=== PATIENT | female | born 1940 | race Caucasian/White ===

== ENCOUNTER 2017-10-17 11:58 | Inpatient (IN) | payer BC, OTHER ==
[2017-09-29 13:54] VITALS: Ht 162.6 cm; Wt 92.1 kg
--- NOTE | 2017-09-29 14:32 | PAT Medication Instructions ---
Service Date Sep 29, 2017. Current Home Medication List Acetaminophen (Tylenol), 2 TAB PO QD PRN for Pain Amlodipine Besylate-Olmesartan (Landon), 1 TAB PO QAM Aspirin (Aspirin Ec), 81 MG PO QAM Bumetanide (Bumex), 1 TAB PO QAM Metoprolol Succinate (Metoprolol Succinate ER), 1 TAB PO QPM Multivitamin (Multivitamin), 1 TAB PO QAM Medication Instructions For Your Scheduled Surgery - Hold the following medications the morning of surgery: Multivitamin (Multivitamin), 1 TAB PO QAM Bumetanide (Bumex), 1 TAB PO QAM Amlodipine Besylate-Olmesartan (Landon), 1 TAB PO QAM - Take the following medications the morning of surgery with a sip of water: Aspirin (Aspirin Ec), 81 MG PO QAM Acetaminophen (Tylenol), 2 TAB PO QD PRN for Pain (if needed, can be taken up to four hours before surgery) - Take the following medications as scheduled the night before surgery: Metoprolol Succinate (Metoprolol Succinate ER), 1 TAB PO QPM If you have any questions please call us at [phone] or [phone] or [phone]
--- NOTE | 2017-09-29 15:13 | DIAGNOSTIC IMAGING REPORT ---
TWO VIEW CHEST CLINICAL HISTORY: Preoperative examination. FINDINGS: PA and lateral chest radiographs are obtained. No prior studies are available for comparison at the time of dictation. The heart is mildly enlarged and there is atherosclerotic calcification of the thoracic aorta. The pulmonary vasculature is noncongested. There is elevation of the right hemidiaphragm and bibasilar atelectasis. No airspace consolidation is seen typical for pneumonia and no pleural effusion is identified. There is no pneumothorax. The skeletal structures are osteopenic. Degenerative change and scoliosis are noted in the thoracic spine. IMPRESSION: Mild cardiomegaly with no active disease in the chest. Electronically signed by: Ashu Ibarra M.D. 09/29/2017 3:12 PM Dictated Date/Time: 09/29/2017 3:11 PM
[2017-09-29 16:13] LABS: HEMATOCRIT 41.7 % (37-47); HEMOGLOBIN 13.6 g/dL (12.0-16.0); MEAN CORPUSCULAR HGB CONC 32.6 g/dl (32-36); MEAN PLATELET VOLUME 11.4 fL (7.4-10.4); PLATELET COUNT 178 K/uL (130-400); RED CELL DISTRIBUTION WIDTH SD 48.1 fL (36.4-46.3); WHITE BLOOD COUNT 12.47 K/uL (4.8-10.8)
[2017-09-29 16:26] LABS: PTT PATIENT 24.8 SECONDS (21.0-31.0)
[2017-09-29 16:32] LABS: CREATININE 1.42 mg/dl (0.60-1.20)
[2017-09-29 16:33] LABS: CALCIUM 9.3 mg/dl (8.5-10.1); POTASSIUM 4.2 mmol/L (3.5-5.1)
[2017-09-29 17:56] LABS: BASO % 0.2 %; BASO ABS # 0.03 K/uL (0-0.2); EOS % 0.3 %; EOS ABS # 0.04 K/uL (0-0.5); IG# 0.01 K/uL (0.00-0.02); LYMPH % 62.6 %; LYMPH ABS # 7.81 K/uL (1.2-3.4); MONO % 6.5 %; MONO ABS # 0.81 K/uL (0.11-0.59); NEUT % 30.3 %; NEUT ABS # 3.77 K/uL (1.4-6.5)
[~2017-10-17] VITALS: Ht 162.6 cm; Wt 92.1 kg
[2017-10-17] VITALS (9 sets, daily range): BP systolic 152–168; BP diastolic 74–87; PULSE 64–88; TEMP 36.6–36.9; O2SAT 92–97
[~2017-10-17 11:58] MED LIST: ACET650S10 PO; AMLO-3 PO; ASPI81TA28 PO; ATROPINE SULFATE 0.1 MG/ML 5ML SYR IV PRN; BUME1TAB42 PO; CEFAZOLIN 2000MG IV PUSH 10 ML IV SCH; EpHEDrine SULFATE INJ 50 MG/ML AMP IV PRN; FENTANYL CITRATE INJ 50 MCG/1 ML 2 ML VIAL IV PRN; LACTATED RINGER'S 1000ML 1,000 ML IV SCH; MULT-506 PO; ONDANSETRON INJ 2 MG/ML 2 ML VIAL IV PRN; TPRSR/25 PO
[2017-10-17] MEDS ORDERED: LIDOCAINE HCL 2% 2 ML VIAL (20MG/ML) ONE (13:09)
[2017-10-17] MEDS ORDERED: ROCURONIUM BROMIDE 10 MG/ML 5 ML VIAL IV ONE ×2 (13:09→14:43)
[2017-10-17] MEDS ORDERED: PROPOFOL IV EMULSION 10 MG/ML 20 ML VIAL IV ONE (13:09)
[2017-10-17] MEDS ORDERED: ONDANSETRON INJ 2 MG/ML 2 ML VIAL ONE ×2 (13:09→15:22)
[2017-10-17] MEDS ORDERED: BACITRACIN 50000 UNIT VIAL ONE (13:09)
[2017-10-17] MEDS ORDERED: DEXAMETHASONE SOD INJ 4 MG/ML VIAL ONE ×2 (13:09→14:09)
[2017-10-17] MEDS ORDERED: BUPIVACAINE/EPINEPHRINE 0.5% MPF 1:200,000 30 ML VIAL ONE (13:09)
[2017-10-17] MEDS ORDERED: FENTANYL CITRATE INJ 50 MCG/1 ML 2 ML VIAL ONE (13:10)
--- NOTE | 2017-10-17 13:38 | History & Physical Bridge Note ---
H&P Re-Evaluation Bridge Note: I have examined the patient, reviewed the History & Physical and in the interval since the performance of the History & Physical I have noted the following changes of clinical significance: No changes noted
--- NOTE | 2017-10-17 13:51 | History and Physical ---
History & Physical Date Oct 17, 2017. Chief Complaint Back and leg pain History of Present Illness The patient is a 77 year old female with complaints of back and leg pain Additional History Hepatic Disease: No Endocrine Disorder: No Kidney Disease: No Hypertension: Yes Heart Disease: No Bleeding Tendencies: No Infectious Diseases: No Allergies Coded Allergies: Morphine (Verified Allergy, Mild, ITCHING, 10/17/17) Tetanus Toxoid (Verified Allergy, Unknown, UNKNOWN REACTION, 10/17/17) PATIENT REPORTS 1960 SHE WENT TO ED FOR CUT AND "WAS TESTED" AND WAS TOLD SHE WAS ALLERGIC TO IT Home Medications Scheduled Amlodipine Besylate-Olmesartan (Landon), 1 TAB PO QAM Aspirin (Aspirin Ec), 81 MG PO QAM Bumetanide (Bumex), 1 TAB PO QAM Metoprolol Succinate (Metoprolol Succinate ER), 1 TAB PO QPM Multivitamin (Multivitamin), 1 TAB PO QAM Scheduled PRN Acetaminophen (Tylenol), 2 TAB PO QD PRN for Pain Diagnosis Lumbar spinal stenosis Plan of Treatment L5-S1 decompression and fusion
[2017-10-17] MEDS ORDERED: HYDROmorphone INJ 2 MG/ML SYR/VIAL ONE (14:09)
[2017-10-17] MEDS ORDERED: EpHEDrine SULFATE 50MG/5ML SYR ONE (14:43)
[2017-10-17] MEDS ORDERED: GLYCOPYRROLATE INJ 0.2 MG/ML VIAL ONE (15:22)
[2017-10-17] MEDS ORDERED: NEOSTIGMINE METHYLSULFATE 5 MG/5 ML SYR ONE (15:22)
[2017-10-17] MEDS ORDERED: ACETAMINOPHEN IV 100 ML IV PRN (15:30)
[2017-10-17] MEDS ORDERED: hydrOXYzine HCL 25 MG TAB PO PRN (15:30)
[2017-10-17] MEDS ORDERED: ALUMINUM/MAGNESIUM SUSP 30 ML UDC PO PRN (15:30)
[2017-10-17] MEDS ORDERED: DO NOT ADMINISTER FLU VACCINE PRN (15:30)
[2017-10-17] MEDS ORDERED: LORAZEPAM INJ 0.5 MG in SYRINGE 0 ML IV PRN (15:30)
[2017-10-17] MEDS ORDERED: DO NOT ADMINISTER PNEUMOCOCCAL VACCINE PRN (15:30)
[2017-10-17] MEDS ORDERED: PROMETHAZINE HCL INJ 12.5 MG in SODIUM CHLORIDE 0.9% 50ML 50 ML IV PRN (15:30)
[2017-10-17] MEDS ORDERED: SODIUM CHLORIDE 0.9% 1000ML 1,000 ML IV SCH (15:30)
[2017-10-17] MEDS ORDERED: LORAZEPAM 0.5 MG TAB PO PRN (15:30)
[2017-10-17] MEDS ORDERED: ONDANSETRON INJ 2 MG/ML 2 ML VIAL IV PRN (15:30)
[2017-10-17] MEDS ORDERED: METOCLOPRAMIDE HCL INJ 5 MG/ML 2 ML VIAL IV PRN (15:30)
[2017-10-17] MEDS ORDERED: BISACODYL 10 MG SUPP PR PRN (15:30)
[2017-10-17] MEDS ORDERED: MAGNESIUM HYDROXIDE SUSP 30 ML UDC PO PRN (15:30)
[2017-10-17] MEDS ORDERED: NALOXONE HCL 0.4 MG/1 ML VIAL/CARP IV PRN ×2 (15:30)
[2017-10-17] MEDS ORDERED: FAMOTIDINE 20 MG TAB PO PRN (15:30)
[2017-10-17] MEDS ORDERED: SOD PHOSPHATE/SOD BIPHOSPHATE ENEMA 132 ML BTL PR PRN (15:30)
--- NOTE | 2017-10-17 15:30 | [facility] Operative Report ---
Operative Report Operative Date Oct 17, 2017. Pre-Operative Diagnosis Lumbar Spinal Stenosis Post-Operative Diagnosis Lumbar Spinal Stenosis Procedure(s) Performed #1 lumbar decompression medial facetectomy foraminotomy L4 5 L5-S1. #2 posterior spinal fusion L5-S1. #3 placement of posterior instrumentation L5-S1. #4 interbody fusion L5-S1. #5 placement of peek cage 11 x 22 mm L5-S1. #6 placement of locally harvested morcellized autograft in the posterior lateral gutters. #7 placement of infuse collagen sponge combined with Master graft in the posterior lateral gutters and ostial amp in the interbody spaces. Surgeon Dr. [facility] Worker Surgeon(s) Liane Garcia PA-C Findings Severe spinal stenosis with spondylolisthesis Specimens None per surgeon Description of Procedure Patient was met with preoperatively case discussed all questions addressed. After informed consent obtained patient was taken to the operative suite and underwent intubation and placed in a prone position on the David table on top of the Rudolph frame. All bony prominences were well-padded the eyes were inspected to ensure no external pressure placed upon them. This point the lumbar spine was prepped and draped in the normal sterile fashion. Sharp dissection with the assistance of Bovie cautery was performed onto an exposing the lamina and transverse processes of L5-S1. From a caudal to cephalad fashion complete laminectomy of L5 partial laminectomy of L4 was performed addressing severe lateral recess and foraminal stenosis. Pedicle screws then placed in L5 and S1 levels bilaterally with the assistance of fluoroscopy and appropriate size mary jane placed. Through a transforaminal approach on the left the discectomy of L5-S1 was performed at the endplates then curetted to subcortical bleeding bone. A 11 x 22 mm peek cage filled with ostial amp was tapped in position. Rods and locked and final position bilaterally. The transverse processes of L5 and the sacral alar bur to subcortical bleeding bone. Infuse collagen sponge mass graft and locally harvested morcellized autograft was placed in the posterior lateral gutters. A 15 round SATINDER drain inserted. Incision was then closed with 1 Vicryl in the fascia 2-0 Vicryl subcutaneous using 4-0 Monocryl for final skin closure Steri-Strips sterile dressings placed. Patient was taken to PACU stable condition. Please note Liane Qeuen was present at the procedure involving complex portions of the surgery and final skin closure. I attest to the content of the Intraoperative Record and any orders documented therein. Any exceptions are noted below.
--- NOTE | 2017-10-17 15:46 | DIAGNOSTIC IMAGING REPORT ---
INTRAOPERATIVE RADIOGRAPHS CLINICAL HISTORY: L5-S1 spinal fusion. Fluoroscopy time: 25 seconds. FINDINGS: 3 spot fluoroscopic views of the lower lumbar spine are presented. There has been discectomy at L5-S1 with laminectomy and posterior fusion at this level. Interpedicular screws are present at both levels. The orthopedic hardware appears intact. IMPRESSION: Intraoperative images from L5 -S1 spinal fusion as above. Electronically signed by: Ashu Ibarra M.D. 10/17/2017 3:44 PM Dictated Date/Time: 10/17/2017 3:44 PM
[2017-10-17] MEDS ORDERED: HYDROmorphone HCL 0.5MG/ML 50 ML CASSETTE ONE (15:48)
--- NOTE | 2017-10-17 16:05 | Anesthesiology Progress Note ---
Anesthesia Post Op Note Date & Time Oct 17, 2017 at 16:04 Vital Signs Pain Intensity: 0 Vital Signs Past 12 Hours Date Time Temp Pulse Resp B/P (MAP) Pulse Ox O2 Delivery O2 Flow Rate FiO2 10/17/17 12:45 36.7 64 20 165/85 (111) 95 Room Air 10/17/17 12:26 36.7 64 20 95 Room Air Notes Mental Status: alert / awake / arousable, participated in evaluation Pt Amnestic to Procedure: Yes Nausea / Vomiting: adequately controlled Pain: adequately controlled Airway Patency, RR, SpO2: stable & adequate BP & HR: stable & adequate Hydration State: stable & adequate Anesthetic Complications: no major complications apparent
[2017-10-17] MEDS: HYDROmorphone HCL 0.5MG/ML 50 ML CASSETTE IV PRN ×2 (16:54→23:08)
[2017-10-17] MEDS: SODIUM CHLORIDE 0.9% 1000ML 1,000 ML IV SCH ×2 (18:10→23:37)
--- NOTE | 2017-10-17 19:30 | Medical Consult ---
Consultation Date of Consultation: Oct 17, 2017. Attending Physician: Alex Anderson D.O. History of Present Illness Patient is a 77 yo female who presented to the hospital for scheduled lumbar surgery. She has had ongoing chronic back pain with radicular symptoms in the LLE. She is seen postoperatively and is doing well, tolerating PO, with no complaints of pain, CP, SOB, nausea/vomiting, or headache. Her family was at the bedside and were updated. A full medical history was obtained from the patient and her family. Past Medical/Surgical History PMHx: HTN Arthritis SURGHx: B/L knee TKA Hysterectomy Axillary breast removal Tonsillectomy and adenoidectomy cataracts eyelid surgery Family History Mother: CVA Father: Cancer Social History Smoking Status: Former Smoker (quit over 40 years ago) Smokeless Tobacco Use: No Alcohol Use: occasionally Drug Use: none Marital Status: Housing Status: lives with family Allergies Coded Allergies: Morphine (Verified Allergy, Mild, ITCHING, 10/17/17) Tetanus Toxoid (Verified Allergy, Unknown, UNKNOWN REACTION, 10/17/17) PATIENT REPORTS 1960 SHE WENT TO ED FOR CUT AND "WAS TESTED" AND WAS TOLD SHE WAS ALLERGIC TO IT Current Inpatient Medications Current Inpatient Medications Medications (Trade) Dose Ordered Sig/Katia Route Start Time Stop Time Status Last Admin Dose Admin Lactated Ringer's 1,000 ml @ 15 mls/hr Q24H IV 10/17/17 06:00 10/18/17 05:59 10/17/17 13:30 15 MLS/HR Ondansetron HCl (Zofran Inj) 4 mg ONE PRN IV 10/17/17 07:00 Promethazine HCl 12.5 mg/Sodium Chloride 50.5 ml @ 202 mls/hr Q6H PRN IV 10/17/17 15:30 11/16/17 15:29 Ondansetron HCl (Zofran Inj) 4 mg Q6H PRN IV 10/17/17 15:30 11/16/17 15:29 Metoclopramide HCl (Reglan Inj) 10 mg Q6H PRN IV 10/17/17 15:30 11/16/17 15:29 Lorazepam (Ativan Tab) 0.5 mg Q8H PRN PO 10/17/17 15:30 11/16/17 15:29 Lorazepam 0.5 mg/ Syringe 0.25 ml @ 1 mls/min Q8H PRN IV 10/17/17 15:30 11/16/17 15:29 Pneumococcal Polysaccharide Vaccine 1 ea PRN PRN N/A 10/17/17 15:30 11/16/17 15:29 Influenza Virus Vacc Triv Types A&B 1 ea PRN PRN N/A 10/17/17 15:30 11/16/17 15:29 Polyethylene (Miralax Powder Packet) 17 gm Q6 PO 10/19/17 06:00 11/18/17 05:59 Bisacodyl (Dulcolax Supp) 10 mg DAILY PRN [place] 10/17/17 15:30 11/16/17 15:29 Magnesium Hydroxide (Milk Of Magnesia Susp) 30 ml DAILY PRN PO 10/17/17 15:30 11/16/17 15:29 Hydromorphone HCl (Dilaudid Inj) 0.5-1mg prn moder... Q3H PRN IV 10/18/17 06:00 11/01/17 05:59 Oxycodone HCl (Roxicodone Immediate Rel Tab) 5-10mg prn moder... Q4H PRN PO 10/18/17 06:00 11/01/17 05:59 Cefazolin Sodium 2000 mg/Syringe 15 ml @ 3.75 mls/ min Q8H IV 10/17/17 20:00 10/18/17 04:03 Sodium Chloride 1,000 ml @ 150 mls/hr Q6H40M IV 10/17/17 15:30 11/16/17 15:29 10/17/17 18:10 150 MLS/HR Acetaminophen (Tylenol Tab) 1,000 mg Q8H PRN PO 10/17/17 15:30 11/16/17 15:29 Acetaminophen 100 ml @ 400 mls/hr Q8H PRN IV 10/17/17 15:30 11/16/17 15:29 Naloxone HCl (Narcan Inj) 0.1 mg Q5M PRN IV 10/17/17 15:30 11/16/17 15:29 Senna/Docusate Sodium (Senokot S Tab) 2 tab HS PO 10/17/17 21:00 11/16/17 20:59 Sodium Biphosphate/ Sodium Phosphate (Fleet Enema) 132 ml ONE PRN [place] 10/17/17 15:30 11/16/17 15:29 Hydroxyzine HCl (Vistaril Tab) 25 mg Q8H PRN PO 10/17/17 15:30 11/16/17 15:29 Al Hydroxide/Mg Hydroxide (Maalox Susp) 30 ml Q6H PRN PO 10/17/17 15:30 11/16/17 15:29 Famotidine (Pepcid Tab) 20 mg Q12 PRN PO 10/17/17 15:30 11/16/17 15:29 Diphenhydramine HCl (Benadryl Cap) 25 mg Q6H PRN PO 10/17/17 15:30 11/16/17 15:29 Miscellaneous Information (Discontinue GORE INSERTER) 1 ea TODAY@0600 N/A 10/18/17 06:00 10/18/17 06:01 Naloxone HCl (Narcan Inj) 0.1 mg Q5M PRN IV 10/17/17 15:30 10/18/17 06:00 Hydromorphone HCl (Dilaudid Thread Winder Automatic) 25 mg PRN PRN IV 10/17/17 15:30 10/18/17 06:00 10/17/17 16:54 25 MG Sodium Chloride 1,000 ml @ 15 mls/hr Q24H IV 10/17/17 15:30 10/18/17 06:00 Aspirin (Ecotrin Tab) 81 mg QAM PO 10/18/17 09:00 11/17/17 08:59 Bumetanide (Bumex Tab) 0.5 mg QAM PO 10/18/17 09:00 11/17/17 08:59 Metoprolol Succinate (Toprol Xl Tab) 25 mg QPM PO 10/17/17 21:00 11/16/17 20:59 Amlodipine Besylate (Norvasc Tab) 5 mg QAM PO 10/18/17 09:00 11/17/17 08:59 Olmesartan (Benicar Tab) 40 mg QAM PO 10/18/17 09:00 11/17/17 08:59 Physical Exam Date Time Temp Pulse Resp B/P (MAP) Pulse Ox O2 Delivery O2 Flow Rate FiO2 1/29/18 18:45 36.8 75 18 152/76 (101) 95 Nasal Cannula 2.0 10/17/17 17:50 78 18 153/87 (109) 97 Nasal Cannula 2.0 10/17/17 17:20 36.7 77 18 159/74 (102) 96 Nasal Cannula 2.0 10/17/17 16:50 97 Nasal Cannula 2.0 10/17/17 16:50 36.6 77 20 168/78 (108) 97 Nasal Cannula 2.0 10/17/17 16:43 77 20 10/17/17 16:43 77 20 96 10/17/17 16:41 152/86 10/17/17 16:38 71 14 10/17/17 16:38 70 14 97 10/17/17 16:36 160/94 10/17/17 16:33 78 20 97 10/17/17 16:33 78 20 10/17/17 16:30 157/78 10/17/17 16:28 78 21 97 10/17/17 16:28 77 21 10/17/17 16:26 149/82 10/17/17 16:26 36.6 76 20 149/82 (105) 97 Nasal Cannula 4 10/17/17 16:23 79 30 10/17/17 16:23 79 30 97 10/17/17 16:21 160/78 10/17/17 16:18 82 21 10/17/17 16:18 80 21 95 10/17/17 16:16 152/87 10/17/17 16:13 79 20 10/17/17 16:13 79 20 96 10/17/17 16:11 149/82 10/17/17 16:08 79 18 96 10/17/17 16:08 79 18 10/17/17 16:06 154/79 10/17/17 16:03 77 18 10/17/17 16:03 77 18 96 10/17/17 16:02 83 11 97 10/17/17 16:02 82 11 10/17/17 16:01 161/81 10/17/17 15:57 87 16 10/17/17 15:57 87 16 96 10/17/17 15:56 153/82 10/17/17 15:52 87 24 10/17/17 15:52 87 24 96 10/17/17 15:51 156/87 10/17/17 15:47 36.2 88 16 159/85 96 Oxymask 10 10/17/17 15:47 87 17 10/17/17 15:47 86 17 159/85 96 10/17/17 12:45 36.7 64 20 165/85 (111) 95 Room Air 10/17/17 12:26 36.7 64 20 95 Room Air Assessment & Plan POSTOPERATIVE STATE: S/P LUMBAR DECOMPRESSION FUSION POD#0 -DVT prophylaxis, pain control, activity, as per Ortho -will monitor vital signs post op -encourage IS -monitor Hb for post op anemia HTN: -slightly elevated at baseline according to the patient -monitor on home meds amlodipine and metoprolol and titrate meds further as needed to better control BP ARTHRITIS: -pain control -PT QUESTIONABLE CKD VS KAMILA: -no prior records to indicate what the patients baseline renal function is -monitor closely and avoid NSAIDs or nephrotoxins
[2017-10-17] MEDS ORDERED: RXC5 PO (21:53)
--- NOTE | 2017-10-17 21:54 | Discharge Instructions ---
Discharge Instructions Date of Service Oct 17, 2017. Admission Reason for Admission: Lumbar Spinal Stenosis L5-S1 Discharge Discharge Diagnosis / Problem: lumbar stenosis Discharge Goals Goal(s): Improve function Activity Recommendations Activity Limitations: per Instructions/Follow-up section . Instructions / Follow-Up Instructions / Follow-Up ACTIVITY RECOMMENDATIONS: SELF CARE INSTRUCTIONS AFTER THORACIC/LUMBAR FUSIONS 1. You may walk to your tolerance. It is good exercise for your legs and back. Expect some back and intermittent leg aches and pains. 2. You may perform "counter-top" level activities (make a sandwich, angelo with a project, etc.). 3. No bending or lifting of more than 10 pounds or back twisting of any nature (roll like a log when turning in bed). 4. You may ride in a car for 20-30 minutes at a time. No driving until after your first visit with your doctor. 5. Frequent changes of position and restricting sitting to 30 minutes at a time will help limit the amount of back spasms and stiffness you may experience. 6. You may discontinue the use of ambulatory aids (cane, crutches, etc.) once your strength and confidence allow. 7. You may brand marketing specialist the shower and let water strike your incision when you arrive home at least once daily. Do not take a tub bath, sit in a hot tub or go into a swimming pool until after your first recheck in the office. SPECIAL CARE INSTRUCTIONS: VERY IMPORTANT TO READ AND REVIEW A. Your surgical incision has been closed with a cosmetic suture under the skin that will dissolve in about 6 weeks. In 14 days, you can use a pair of clean scissors and cut the suture that is left outside of the skin at the ends of your incision. 1. The small skin tapes can be removed 7 days after surgery if they have not fallen off by that point. 2. You may keep the wound open to air as much as possible to promote healing after post-op day number 5 unless told otherwise by your doctor. 3. If you think the wound looks like it is becoming infected (redness or worsening drainage) and/or you are experiencing fever, chill or worsening back pain and muscle spasms, contact the office so that we may evaluate you as soon as possible. B. Complications are uncommon, but please contact us if you have any signs or symptoms of: 1. wound infection (fever higher than 102.5 degrees F, redness, separation of wound, drainage, or increasing pain from the incision) 2. blood clots in legs (pain, swelling, redness and warmth in legs) 3. urinary tract infection (fever higher than 102.5 degrees F, burning upon urination or increased frequency of urination) 4. nerve problems (inability to walk on your toes or heels, numbness, loss of bowel or bladder control) 5. any other symptoms that concern you C. Please call the office at if you have any concerns or questions about your operation or recovery. D. No smoking! Smoking drastically decreases the chance of a solid fusion. E. Do not take any anti-inflammatory medications (Indocin, Advil, Motrin, Aspirin, Naprosyn, etc.) as these may inhibit the chance of a solid fusion. Tylenol is okay to take for pain. MANAGING PAIN AFTER SPINAL SURGERY 1. Narcotic medication is intended for short-term use and will be provided for surgical pain. Surgical pain usually lasts for a period of 4-6 weeks. Narcotic medication includes Percocet, Vicodin, Darvocet, Tylenol #3 or Lortab. 2. Longer-term pain is more appropriately treated with non-narcotic medication such as Tylenol ES. 3. Muscle spasm is not appropriately treated with narcotics. Muscle relaxers such as Soma, Flexeril or Skelaxin can be used along with Tylenol ES. 4. Remember that we all live with some "aches and pains". This is not unusual or uncommon after an injury or as we get older. a. Back pain is expected and may include muscle spasms for 4 to 6 weeks after surgery. The pain should gradually improve. If the pain worsens for no apparent reason, please contact the office. b. Intermittent leg pain may also be experienced and should not be concerned about unless it worsens for no apparent reason. If so, please contact the office. 5. We will provide appropriate medication within the normal guidelines of their prescribed use. We will also be very cautious and aware of potential abuse and extended duration of patients' medication needs. a. Pain medications are for your comfort and to assist with sleep and rest so that the tissue can heal. They are not provided in order to return to normal activity and should not be used through the day. To do so or worsening pain at night can result from ongoing tissue damage and development of tolerance to the prescribed medicine. 6. Please allow 2-3 days to process refills. Prescriptions will not be mailed but must be picked up at the office. FOLLOW UP VISIT: Keep your scheduled follow-up appointment. Any questions, please call the office at . Current Hospital Diet Patient's current hospital diet: Regular Diet Discharge Diet Recommended Diet: Regular Diet Procedures Procedures Performed: #1 lumbar decompression medial facetectomy foraminotomy L4 5 L5-S1. #2 posterior spinal fusion L5-S1. #3 placement of posterior instrumentation L5-S1. #4 interbody fusion L5-S1. #5 placement of peek cage 11 x 22 mm L5-S1. #6 placement of locally harvested morcellized autograft in the posterior lateral gutters. #7 placement of infuse collagen sponge combined with Master graft in the posterior lateral gutters and ostial amp in the interbody spaces. Pending Studies Studies pending at discharge: no Medical Emergencies . Who to Call and When: Medical Emergencies: If at any time you feel your situation is an emergency, please call 911 immediately. . Non-Emergent Contact Non-Emergency issues call your: Primary Care Provider . "Provider Documentation" section prepared by Alex Anderson. . VTE Core Measure Inpt VTE Proph given/why not?: Minerva Mondragon, MICHELLE's
[2017-10-17] MEDS: DOCUSATE SODIUM/SENNA 50/8.6MG TAB PO SCH (22:39)
[2017-10-17] MEDS: METOPROLOL SUCC 25MG EXT REL TAB PO SCH (22:40)
[2017-10-17] MEDS: CEFAZOLIN IV 2,000 MG in SYRINGE 5 ML IV SCH (22:43)
[2017-10-18 02:50] VITALS: BP 138/74; PULSE 73; TEMP 36.8; O2SAT 93
[2017-10-18] MEDS: CEFAZOLIN IV 2,000 MG in SYRINGE 5 ML IV SCH (04:38)
[2017-10-18] MEDS: SODIUM CHLORIDE 0.9% 1000ML 1,000 ML IV SCH (04:50)
[2017-10-18] MEDS ORDERED: HYDROmorphone INJ 0.5 MG/0.5 ML SYR IV PRN (06:00)
[2017-10-18] MEDS ORDERED: OXYCODONE HCL IR 5 MG TAB (IMMEDIATE RELEASE) PO PRN (06:00)
[2017-10-18] MEDS ORDERED: NURSING VERBAL MED ORDER ONE (06:00)
[2017-10-18] MEDS ORDERED: DC PCA SCH (06:00)
[2017-10-18 06:35] LABS: HEMATOCRIT 34.3 % (37-47); HEMOGLOBIN 11.4 g/dL (12.0-16.0); MEAN CELL VOLUME 94.2 fL (80-100); MEAN CORPUSCULAR HEMOGLOBIN 31.3 pg (25-34); MEAN CORPUSCULAR HGB CONC 33.2 g/dl (32-36); PLATELET COUNT 159 K/uL (130-400); RED CELL DISTRIBUTION WIDTH CV 13.6 % (11.5-14.5); RED CELL DISTRIBUTION WIDTH SD 46.8 fL (36.4-46.3); WHITE BLOOD COUNT 17.87 K/uL (4.8-10.8)
[2017-10-18 07:02] VITALS: BP 149/78; PULSE 74; TEMP 37.1; O2SAT 92
[2017-10-18 07:06] LABS: CALCIUM 8.6 mg/dl (8.5-10.1); CREATININE 1.47 mg/dl (0.60-1.20); POTASSIUM 4.2 mmol/L (3.5-5.1)
[2017-10-18] MEDS: AMLODIPINE BESYLATE 5 MG TAB PO SCH (08:18)
[2017-10-18] MEDS: ASPIRIN 81 MG ECTAB PO SCH (08:18)
[2017-10-18] MEDS: OLMESARTAN MEDOXOMIL 40 MG TAB PO SCH (08:21)
[2017-10-18] MEDS: BUMETANIDE 1 MG TAB PO SCH (08:21)
[2017-10-18 12:00] VITALS: BP 142/77; PULSE 74; TEMP 36.9; O2SAT 96
[2017-10-18] MEDS: ACETAMINOPHEN 500 MG TAB PO PRN (12:14)
[2017-10-18 12:57] LABS: BASO % 0.1 %; BASO ABS # 0.01 K/uL (0-0.2); IG# 0.06 K/uL (0.00-0.02); LYMPH % 42.8 %; LYMPH ABS # 7.65 K/uL (1.2-3.4); MONO % 8.8 %; MONO ABS # 1.58 K/uL (0.11-0.59); NEUT ABS # 8.57 K/uL (1.4-6.5)
[2017-10-18 15:19] VITALS: BP 161/88; PULSE 68; TEMP 37; O2SAT 93
--- NOTE | 2017-10-18 16:13 | Progress Note ---
Internal Med Progress Note Date of Service: Oct 18, 2017. Provider Documentation: SUBJECTIVE: Seen and examined at bedside Back pain is controlled, was able to walk without pain Had BM today Denies CP, SOB, dizziness Family at bedside No other complaints OBJECTIVE: Vital Signs-as noted below Physical Exam: General Appearance:Moderately built and nourished, no apparent distress Head: normocephalic, Atraumatic Eyes: normal inspection, EOMI, PERRL Neck: supple, Trachea midline Respiratory/Chest: Normal breath sounds, CTA Cardiovascular: S1, S2, + murmur Back:+drain Abdomen/GI:Soft, Non tender, Bowel sounds present Extremities/Musculoskelatal:normal inspection, Chronic LE edema Neurologic/Psych:AAOX3, grossly no focal neurological deficits Skin: normal color, warm Lab data as noted below. ASSESSMENT & PLAN: S/P L5-S1 Decompression and fusion POD # 1 Leukocytosis likely secondary to steroids, afebrile DVT prophylaxis, pain control, activity, as per Ortho HTN: Labile likely secondary to pain Continue amlodipine, metoprolol, Benicar Monitor renal function while on Benicar, Bumex Arthritis: pain control PT/OT CKD III: Unknown baseline Cr Monitor renal function Avoid NSAIDs or nephrotoxins as able DVT Px/Disposition: Per Primary Team Vital Signs: Date Time Temp Pulse Resp B/P (MAP) Pulse Ox O2 Delivery O2 Flow Rate FiO2 10/18/17 15:19 37.0 68 16 161/88 (112) 93 Room Air 10/18/17 12:00 36.9 74 16 142/77 (98) 96 Room Air 10/18/17 07:45 Room Air 10/18/17 07:02 37.1 74 16 149/78 (101) 92 Room Air 10/18/17 02:50 36.8 73 16 138/74 (95) 93 Room Air 10/17/17 23:39 Room Air 10/17/17 22:45 36.9 85 16 152/79 (103) 92 Room Air 10/17/17 21:34 94 Room Air 10/17/17 19:50 36.8 88 16 155/86 (109) 96 Room Air 10/17/17 18:45 36.8 75 18 152/76 (101) 95 Nasal Cannula 2.0 10/17/17 17:50 78 18 153/87 (109) 97 Nasal Cannula 2.0 10/17/17 17:20 36.7 77 18 159/74 (102) 96 Nasal Cannula 2.0 10/17/17 16:50 97 Nasal Cannula 2.0 10/17/17 16:50 97 Nasal Cannula 2.0 10/17/17 16:50 36.6 77 20 168/78 (108) 97 Nasal Cannula 2.0 10/17/17 16:43 77 20 10/17/17 16:43 77 20 96 10/17/17 16:41 152/86 Lab Results: Results Past 24 Hours Test 10/18/17 06:12 Range/Units White Blood Count 17.87 4.8-10.8 K/uL Red Blood Count 3.64 4.2-5.4 M/uL Hemoglobin 11.4 12.0-16.0 g/dL Hematocrit 34.3 37-47 % Mean Corpuscular Volume 94.2 80-100 fL Mean Corpuscular Hemoglobin 31.3 25-34 pg Mean Corpuscular Hemoglobin Concent 33.2 32-36 g/dl Platelet Count 159 130-400 K/uL Mean Platelet Volume 11.0 7.4-10.4 fL Neutrophils (%) (Auto) 48.0 % Lymphocytes (%) (Auto) 42.8 % Monocytes (%) (Auto) 8.8 % Eosinophils (%) (Auto) 0.0 % Basophils (%) (Auto) 0.1 % Neutrophils # (Auto) 8.57 1.4-6.5 K/uL Lymphocytes # (Auto) 7.65 1.2-3.4 K/uL Monocytes # (Auto) 1.58 0.11-0.59 K/uL Eosinophils # (Auto) 0.00 0-0.5 K/uL Basophils # (Auto) 0.01 0-0.2 K/uL RDW Standard Deviation 46.8 36.4-46.3 fL RDW Coefficient of Variation 13.6 11.5-14.5 % Immature Granulocyte % (Auto) 0.3 % Immature Granulocyte # (Auto) 0.06 0.00-0.02 K/uL Smudge Cells PRESENT Blood Smear Review Sodium Level 141 136-145 mmol/L Potassium Level 4.2 3.5-5.1 mmol/L Chloride Level 108 98-107 mmol/L Carbon Dioxide Level 25 21-32 mmol/L Anion Gap 8.0 3-11 mmol/L Blood Urea Nitrogen 21 7-18 mg/dl Creatinine 1.47 0.60-1.20 mg/dl Est Creatinine Clear Calc Drug Dose 34.1 ml/min Estimated GFR () 38.9 Estimated GFR (Non- 33.6 BUN/Creatinine Ratio 14.2 10-20 Random Glucose 143 70-99 mg/dl Calcium Level 8.6 8.5-10.1 mg/dl
--- NOTE | 2017-10-18 16:56 | Progress Note ---
Progress Note Date of Service Oct 18, 2017. Progress Note Patient's back pain is well-controlled. She's noted marked improvement of her left leg pain. On exam her vital signs are stable. She is sitting at the side of the bed has good strength testing. Assessment status post lumbar decompression and fusion. At this time we'll assess her progress of the next day or so and discharge home.
[2017-10-18] MEDS: DOCUSATE SODIUM/SENNA 50/8.6MG TAB PO SCH (21:00)
[2017-10-18 21:40] VITALS: BP 162/81; PULSE 79
[2017-10-18] MEDS: METOPROLOL SUCC 25MG EXT REL TAB PO SCH (21:41)
[2017-10-18 23:11] VITALS: BP 148/80; PULSE 78; TEMP 36.9; O2SAT 91
[2017-10-19] MEDS ORDERED: NURSING VERBAL MED ORDER ONE (04:00)
[2017-10-19] MEDS ORDERED: POLYETHYLENE (MIRALAX) 17 GM PACK PO SCH (06:00)
[2017-10-19 06:27] VITALS: BP 157/80; PULSE 69; TEMP 37.3; O2SAT 91
[2017-10-19 06:51] LABS: HEMATOCRIT 33.8 % (37-47); MEAN CELL VOLUME 94.2 fL (80-100); MEAN CORPUSCULAR HEMOGLOBIN 30.6 pg (25-34); MEAN CORPUSCULAR HGB CONC 32.5 g/dl (32-36); MEAN PLATELET VOLUME 11.4 fL (7.4-10.4); PLATELET COUNT 146 K/uL (130-400); RED CELL DISTRIBUTION WIDTH CV 13.8 % (11.5-14.5); RED CELL DISTRIBUTION WIDTH SD 47.3 fL (36.4-46.3); WHITE BLOOD COUNT 15.19 K/uL (4.8-10.8)
[2017-10-19 07:31] LABS: CALCIUM 8.4 mg/dl (8.5-10.1); CREATININE 1.38 mg/dl (0.60-1.20); POTASSIUM 3.8 mmol/L (3.5-5.1)
--- NOTE | 2017-10-19 08:37 | Progress Note ---
Progress Note Date of Service Oct 19, 2017. Progress Note Patient's back pain is well-controlled. Leg symptoms are markedly improved. On exam she is ambulating well has good strength testing. Assessment status post lumbar decompression fusion. Claude this time will maintain the SATINDER drain another 24 hours and anticipate DC home tomorrow morning.
[2017-10-19 08:57] VITALS: O2SAT 94
[2017-10-19] MEDS: BUMETANIDE 1 MG TAB PO SCH (09:28)
[2017-10-19] MEDS: ASPIRIN 81 MG ECTAB PO SCH (09:28)
[2017-10-19] MEDS: OLMESARTAN MEDOXOMIL 40 MG TAB PO SCH (09:28)
[2017-10-19] MEDS: AMLODIPINE BESYLATE 5 MG TAB PO SCH (09:28)
[2017-10-19] MEDS: ACETAMINOPHEN 500 MG TAB PO PRN ×2 (09:31→18:52)
[2017-10-19 10:02] VITALS: O2SAT 93
[2017-10-19 11:53] VITALS: BP 130/64; PULSE 72; TEMP 36.8; O2SAT 92
[2017-10-19 15:12] VITALS: BP 122/70; PULSE 68; TEMP 37; O2SAT 94
--- NOTE | 2017-10-19 16:49 | Progress Note ---
Internal Med Progress Note Date of Service: Oct 19, 2017. Provider Documentation: SUBJECTIVE: Seen and examined at bedside Doing well today Back pain is well controlled Denies CP, SOB, dizziness Family at bedside No other complaints OBJECTIVE: Vital Signs-as noted below Physical Exam: General Appearance:Moderately built and nourished, no apparent distress Head: normocephalic, Atraumatic Eyes: normal inspection, EOMI, PERRL Neck: supple, Trachea midline Respiratory/Chest: Normal breath sounds, CTA Cardiovascular: S1, S2, + murmur Back:+drain Abdomen/GI:Soft, Non tender, Bowel sounds present Extremities/Musculoskelatal:normal inspection, Chronic LE edema Neurologic/Psych:AAOX3, grossly no focal neurological deficits Skin: normal color, warm Lab data as noted below. ASSESSMENT & PLAN: S/P L5-S1 Decompression and fusion POD # 2 Leukocytosis likely secondary to steroids Leukocytosis trending down DVT prophylaxis, pain control, activity, as per Ortho HTN: BP much improved Continue amlodipine, metoprolol, Benicar Monitor renal function while on Benicar, Bumex Arthritis: pain control PT/OT CKD III: Unknown baseline Cr Monitor renal function Avoid NSAIDs or nephrotoxins as able DVT Px/Disposition: Per Primary Team Noted plan to be discharged in AM Vital Signs: Date Time Temp Pulse Resp B/P (MAP) Pulse Ox O2 Delivery O2 Flow Rate FiO2 10/19/17 15:12 37.0 68 16 122/70 (87) 94 Room Air 10/19/17 11:53 36.8 72 16 130/64 (86) 92 Room Air 10/19/17 10:02 93 Room Air 10/19/17 08:57 Room Air 10/19/17 07:20 Room Air 10/19/17 06:27 37.3 69 18 157/80 (105) 91 Room Air 10/19/17 00:00 Room Air 10/18/17 23:11 36.9 78 16 148/80 (102) 91 Room Air 10/18/17 21:40 79 162/81 (108) Lab Results: Results Past 24 Hours Test 10/19/17 05:47 Range/Units White Blood Count 15.19 4.8-10.8 K/uL Red Blood Count 3.59 4.2-5.4 M/uL Hemoglobin 11.0 12.0-16.0 g/dL Hematocrit 33.8 37-47 % Mean Corpuscular Volume 94.2 80-100 fL Mean Corpuscular Hemoglobin 30.6 25-34 pg Mean Corpuscular Hemoglobin Concent 32.5 32-36 g/dl RDW Standard Deviation 47.3 36.4-46.3 fL RDW Coefficient of Variation 13.8 11.5-14.5 % Platelet Count 146 130-400 K/uL Mean Platelet Volume 11.4 7.4-10.4 fL Sodium Level 141 136-145 mmol/L Potassium Level 3.8 3.5-5.1 mmol/L Chloride Level 109 98-107 mmol/L Carbon Dioxide Level 24 21-32 mmol/L Anion Gap 9.0 3-11 mmol/L Blood Urea Nitrogen 23 7-18 mg/dl Creatinine 1.38 0.60-1.20 mg/dl Est Creatinine Clear Calc Drug Dose 36.4 ml/min Estimated GFR () 42.0 Estimated GFR (Non- 36.3 BUN/Creatinine Ratio 16.5 10-20 Random Glucose 111 70-99 mg/dl Calcium Level 8.4 8.5-10.1 mg/dl Magnesium Level 1.8 1.8-2.4 mg/dl
[2017-10-19] MEDS: DOCUSATE SODIUM/SENNA 50/8.6MG TAB PO SCH (20:43)
[2017-10-19] MEDS: METOPROLOL SUCC 25MG EXT REL TAB PO SCH (20:45)
[2017-10-19 23:22] VITALS: BP 131/69; PULSE 72; TEMP 36.9; O2SAT 92
[2017-10-20 07:14] VITALS: BP 155/89; PULSE 65; TEMP 37.3; O2SAT 93
[2017-10-20 07:24] LABS: CALCIUM 8.6 mg/dl (8.5-10.1); CREATININE 1.23 mg/dl (0.60-1.20); POTASSIUM 3.8 mmol/L (3.5-5.1)
[2017-10-20] MEDS: ACETAMINOPHEN 500 MG TAB PO PRN (07:28)
--- NOTE | 2017-10-20 08:21 | Discharge Instructions ---
Discharge Instructions Date of Service Oct 20, 2017. Admission Reason for Admission: Lumbar Spinal Stenosis L5-S1 Discharge Discharge Diagnosis / Problem: status post lumbar decompression with instrumented fusion Discharge Goals Goal(s): Decrease discomfort, Improve function, Increase independence Activity Recommendations Activity Limitations: per Instructions/Follow-up section Lifting Limitations: no more than 5 pounds Shower/Bathe: tomorrow . Instructions / Follow-Up Instructions / Follow-Up ACTIVITY RECOMMENDATIONS: SELF CARE INSTRUCTIONS AFTER THORACIC/LUMBAR FUSIONS 1. You may walk to your tolerance. It is good exercise for your legs and back. Expect some back and intermittent leg aches and pains. 2. You may perform "counter-top" level activities (make a sandwich, angelo with a project, etc.). 3. No bending or lifting of more than 10 pounds or back twisting of any nature (roll like a log when turning in bed). 4. You may ride in a car for 20-30 minutes at a time. No driving until after your first visit with your doctor. 5. Frequent changes of position and restricting sitting to 30 minutes at a time will help limit the amount of back spasms and stiffness you may experience. 6. You may discontinue the use of ambulatory aids (cane, crutches, etc.) once your strength and confidence allow. 7. 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 Do not take a tub bath, sit in a hot tub or go into a swimming pool until after your first recheck in the office. SPECIAL CARE INSTRUCTIONS: VERY IMPORTANT TO READ AND REVIEW A. Your surgical incision has been closed with a cosmetic suture under the skin that will dissolve in about 6 weeks. In 14 days, you can use a pair of clean scissors and cut the suture that is left outside of the skin at the ends of your incision. 1. The small skin tapes can be removed 7 days after surgery if they have not fallen off by that point. 2. You may keep the wound open to air as much as possible to promote healing after post-op day number 5 unless told otherwise by your doctor. 3. If you think the wound looks like it is becoming infected (redness or worsening drainage) and/or you are experiencing fever, chill or worsening back pain and muscle spasms, contact the office so that we may evaluate you as soon as possible. B. Complications are uncommon, but please contact us if you have any signs or symptoms of: 1. wound infection (fever higher than 102.5 degrees F, redness, separation of wound, drainage, or increasing pain from the incision) 2. blood clots in legs (pain, swelling, redness and warmth in legs) 3. urinary tract infection (fever higher than 102.5 degrees F, burning upon urination or increased frequency of urination) 4. nerve problems (inability to walk on your toes or heels, numbness, loss of bowel or bladder control) 5. any other symptoms that concern you C. Please call the office at if you have any concerns or questions about your operation or recovery. D. No smoking! Smoking drastically decreases the chance of a solid fusion. E. Do not take any anti-inflammatory medications (Indocin, Advil, Motrin, Aspirin, Naprosyn, etc.) as these may inhibit the chance of a solid fusion. Tylenol is okay to take for pain. MANAGING PAIN AFTER SPINAL SURGERY 1. Narcotic medication is intended for short-term use and will be provided for surgical pain. Surgical pain usually lasts for a period of 4-6 weeks. Narcotic medication includes Percocet, Vicodin, Darvocet, Tylenol #3 or Lortab. 2. Longer-term pain is more appropriately treated with non-narcotic medication such as Tylenol ES. 3. Muscle spasm is not appropriately treated with narcotics. Muscle relaxers such as Soma, Flexeril or Skelaxin can be used along with Tylenol ES. 4. Remember that we all live with some "aches and pains". This is not unusual or uncommon after an injury or as we get older. a. Back pain is expected and may include muscle spasms for 4 to 6 weeks after surgery. The pain should gradually improve. If the pain worsens for no apparent reason, please contact the office. b. Intermittent leg pain may also be experienced and should not be concerned about unless it worsens for no apparent reason. If so, please contact the office. 5. We will provide appropriate medication within the normal guidelines of their prescribed use. We will also be very cautious and aware of potential abuse and extended duration of patients' medication needs. a. Pain medications are for your comfort and to assist with sleep and rest so that the tissue can heal. They are not provided in order to return to normal activity and should not be used through the day. To do so or worsening pain at night can result from ongoing tissue damage and development of tolerance to the prescribed medicine. 6. Please allow 2-3 days to process refills. Prescriptions will not be mailed but must be picked up at the office. FOLLOW UP VISIT: Keep your scheduled follow-up appointment. Any questions, please call the office at . Current Hospital Diet Patient's current hospital diet: Regular Diet Discharge Diet Recommended Diet: Regular Diet Procedures Procedures Performed: #1 lumbar decompression medial facetectomy foraminotomy L4 5 L5-S1. #2 posterior spinal fusion L5-S1. #3 placement of posterior instrumentation L5-S1. #4 interbody fusion L5-S1. #5 placement of peek cage 11 x 22 mm L5-S1. #6 placement of locally harvested morcellized autograft in the posterior lateral gutters. #7 placement of infuse collagen sponge combined with Master graft in the posterior lateral gutters and ostial amp in the interbody spaces. Pending Studies Studies pending at discharge: no Medical Emergencies . Who to Call and When: Medical Emergencies: If at any time you feel your situation is an emergency, please call 911 immediately. . Non-Emergent Contact Non-Emergency issues call your: Primary Care Provider, Surgeon Call Non-Emergent contact if: your pain is worsening, your pain is unusual for you, your pain is concerning you, wound has increased drainage, wound has increased redness, wound has increased pain . "Provider Documentation" section prepared by Liane Queen. . VTE Core Measure Inpt VTE Proph given/why not?: Minerva Mondragon, SCD's
[2017-10-20] MEDS: AMLODIPINE BESYLATE 5 MG TAB PO SCH (09:16)
[2017-10-20] MEDS: OLMESARTAN MEDOXOMIL 40 MG TAB PO SCH (09:17)
[2017-10-20] MEDS: ASPIRIN 81 MG ECTAB PO SCH (09:17)
[2017-10-20] MEDS: DOCUSATE SODIUM/SENNA 50/8.6MG TAB PO SCH (09:17)
[2017-10-20] MEDS: BUMETANIDE 1 MG TAB PO SCH (09:17)
[2017-10-20 10:24] VITALS: BP 155/89; PULSE 65; TEMP 37.3; O2SAT 93
== END 2017-10-20 14:10 | disposition home or self-care (01) | DRG 454 ==
LOC: C.ACU 11:58 → C.3E 13:30 → ENRESERV 16:10
PROVIDERS: ADMIT Orthopaedic Surgery Orthopaedic Surgery of the Spine; ATTEND Orthopaedic Surgery Orthopaedic Surgery of the Spine
PROC: 0SG3071 Fusion of Lumbosacral Joint with Autologous Tissue Substitute, Posterior Approach, Posterior Column, Open Approach (ICD-10-PCS; principal; 2017-10-17 14:15)
PROC: 0SG30AJ Fusion of Lumbosacral Joint with Interbody Fusion Device, Posterior Approach, Anterior Column, Open Approach (ICD-10-PCS; principal; 2017-10-17 14:15)
PROC: 0ST40ZZ Resection of Lumbosacral Disc, Open Approach (ICD-10-PCS; principal; 2017-10-17 14:15)
DX: M48.061 Spinal stenosis, lumbar region without neurogenic claudication (principal); N17.9 Acute kidney failure, unspecified; M43.16 Spondylolisthesis, lumbar region; M54.10 Radiculopathy, site unspecified; D72.829 Elevated white blood cell count, unspecified; T38.0X5A Adverse effect of glucocorticoids and synthetic analogues, initial encounter; I12.9 Hypertensive chronic kidney disease with stage 1 through stage 4 chronic kidney disease, or unspecified chronic kidney disease; N18.3 Chronic kidney disease, stage 3 (moderate); M19.90 Unspecified osteoarthritis, unspecified site; E66.9 Obesity, unspecified; Z68.35 Body mass index [BMI] 35.0-35.9, adult; Z87.891 Personal history of nicotine dependence; Z79.82 Long term (current) use of aspirin; Z79.899 Other long term (current) drug therapy; Z82.3 Family history of stroke